=== PATIENT | female | born 1990 | race Caucasian/White ===

== ENCOUNTER 2016-09-17 11:15 | Emergency (ER) | payer OTHER ==
[2016-09-17 11:37] VITALS: BP 113/62; PULSE 78; RESP 16; TEMP 98; O2SAT 99
--- NOTE | 2016-09-17 12:19 | ED PDOC ---
HPI: Female Pain Time Seen by Provider: 09/17/16 11:42 Chief Complaint (Nursing): Female Genitourinary Chief Complaint (Provider): Female genitourinary History Per: Patient History/Exam Limitations: no limitations Onset/Duration Of Symptoms: Days (1x) Current Symptoms Are (Timing): Still Present Severity: Moderate Quality Of Discomfort: Cramping (lower abdominal) Associated Symptoms: denies: Nausea, Vomiting, Diarrhea, Urinary Symptoms Additional Complaint(s): 26 year old female presents to the ED with complaints of brown vaginal discharge. She reports that she is 10 weeks () and has had 2 ultrasounds during this . She also reports that she has lower abdominal cramping that comes and goes. She denies having any bleeding, and spotting, fever, nausea, vomiting, diarrhea. PMD: Andrea Paez MD Abnormal Vaginal Bleeding: No : 2 Para: 1 Past Medical History Reviewed: Historical Data, Nursing Documentation, Vital Signs Vital Signs: Last Vital Signs Temp 98 F 09/17/16 11:33 Pulse 78 09/17/16 11:33 Resp 16 09/17/16 11:33 BP 113/62 09/17/16 11:33 Pulse Ox 99 09/17/16 11:33 - Medical History PMH: No Chronic Diseases - Surgical History Surgical History: Cholecystectomy, - Family History Family History: States: No Known Family Hx - Social History Alcohol: None Drugs: Denies - Home Medications Home Medications: Ambulatory Orders Medication Instructions Recorded No Known Home Med 08/08/16 - Allergies Allergies/Adverse Reactions: Allergies Allergy/AdvReac Type Severity Reaction Status Date / Time No Known Allergies Allergy Verified 09/17/16 11:33 Review of Systems ROS Statement: Except As Marked, All Systems Reviewed And Found Negative Gastrointestinal: Positive for: Abdominal Pain (lower abdominal cramping that comes and goes). Negative for: Nausea, Vomiting, Diarrhea Genitourinary Female: Positive for: Vaginal Discharge (brown). Negative for: Vaginal Bleeding Physical Exam - Reviewed Nursing Documentation Reviewed: Yes Vital Signs Reviewed: Yes - Physical Exam Appears: Positive for: Well, Non-toxic, No Acute Distress Head Exam: Positive for: ATRAUMATIC, NORMOCEPHALIC Skin: Positive for: Normal Color, Warm, Dry Neck: Positive for: Normal Cardiovascular/Chest: Positive for: Regular Rate, Rhythm, Chest Non Tender Respiratory: Positive for: Normal Breath Sounds. Negative for: Respiratory Distress Gastrointestinal/Abdominal: Positive for: Tenderness (mild suprapubic tenderness ) Neurologic/Psych: Positive for: Alert, Oriented (3x) - ECG O2 Sat by Pulse Oximetry: 99 (RA) Pulse Ox Interpretation: Normal Medical Decision Making Medical Decision Makin:42 Initial impression: 26 year old female with brown vaginal discharge. Differential diagnoses include but are not limited to vaginal bleed in , threatened vs missed , and demise; less likely but still considered: UTI. Initial plan: * udip * US OB limited * reevaluation * OB TVUS IMPRESSION: Intrauterine gestational sac without evidence of pole suggesting demise. Ectopic not excluded. Recommend correlation with serial beta HCG levels and short-term interval followup. No evidence of IUP compared to US 1 m ago. O Positive. Discussed with Dr Jain who agrees it is demise. Follow up with PCP within 1 week. Scribe Attestation: Documented by Alisson Dumont, acting as a scribe for Amanuel Ahumada MD. Provider Scribe Attestation: All medical record entries made by the Scribe were at my direction and personally dictated by me. I have reviewed the chart and agree that the record accurately reflects my personal performance of the history, physical exam, medical decision making, and the department course for this patient. I have also personally directed, reviewed, and agree with the discharge instructions and disposition. Disposition - Clinical Impression Clinical Impression: demise - Patient ED Disposition Is Patient to be Admitted: No Doctor Will See Patient In The: Office Counseled Patient/Family Regarding: Studies Performed, Diagnosis, Need For Followup - Disposition Referrals: Andrea Paez MD [Medical Doctor] - Disposition: Routine/Home Disposition Time: 15:48 Condition: GOOD Additional Instructions: Follow up with your PCP within 1 week. Instructions: Spontaneous Miscarriage (ED)
== END 2016-09-17 16:12 | disposition home or self-care (01) ==
LOC: H.ER 11:15
DX: O03.9 Complete or unspecified spontaneous abortion without complication (principal)